=== PATIENT | male | born 1970 | race Caucasian/White ===

== ENCOUNTER 2017-02-04 18:51 | Emergency (ER) | payer SELFPAY ==
[2017-02-04 19:40] LABS: BASOPHIL# 0.2 X 10^3uL (0.0-0.1); BASOPHILS 2.2 % (0.0-2.0); EOSINOPHILS 2.7 % (0.0-6.0); EOSINOPHILS# 0.2 X 10^3uL (0.0-0.4); HEMATOCRIT 46.9 % (42.0-54.0); HEMOGLOBIN 15.7 g/dL (14.0-18.0); LYMPHOCYTES 25.1 % (20.0-40.0); MEAN CELL VOLUME 87.3 fL (80.0-100.0); MEAN CORPUS. HGB CONCENTRATION 33.5 g/dL (32.0-36.0); MEAN CORPUSCULAR HEMOGLOBIN 29.2 pg (29.0-35.0); MEAN PLATELET VOLUME 8.5 fL (7.4-10.4); MONOCYTES 6.2 % (2.0-10.0); MONOCYTES# 0.5 X 10^3uL (0.2-1.0); NEUTROPHILS 63.8 % (54.0-75.0); NEUTROPHILS# 5.1 X 10^3uL (2.6-6.7); RED BLOOD COUNT 5.37 X 10^6uL (4.20-6.10); RED CELL DISTRIBUTION WIDTH 14.1 % (11.5-14.5)
[2017-02-04] MEDS ORDERED: CLINDAMYCIN/D5W 600 MG/50 ML 600 MG IV ONE (19:41)
--- NOTE | 2017-02-04 20:34 | ER NURSING DOCUMENTATION ---
Nurse's Notes [facility] Name:Nick Buchanan Age:46 yrs Sex:Male :1970 Arrival Date:02/04/2017 Time:18:51 Bed5 Private MD: Diagnosis:Cellulitis of Upper Limb Presentation: 02/04 18:55 Acuity: EDUARDO 3 bw2 18:59 Presenting complaint: Patient states: pt received a laceration Sunday, now has reddness bw2 and streaking. denies fevers at home. Transition of care: patient was not received from another setting of care. 18:59 Method Of Arrival: Walk In bw2 Triage Assessment: 19:01 General: Appears in no apparent distress, Behavior is appropriate for age. Pain: Denies bw2 pain. Respiratory: No deficits noted. Breath sounds are clear bilaterally. Historical: - Allergies: SULFA (SULFONAMIDES); - Home Meds: 1. None - Tetanus: unknown. - Ebola Screening: : Patient negative for fever greater than or equal to 101.5 degrees Fahrenheit, and additional compatible Ebola Virus Disease symptoms. Patient denies exposure to infectious person. Patient denies travel to an Ebola-affected area in the 21 days before illness onset. No symptoms or risks identified at this time. . - Immunization history: Flu Vaccine None. - Social history: Smoking status: Patient uses tobacco products, current every day smoker. Screenin:04 Infectious Disease Risk None. Abuse screen: Denies threats or abuse. Denies injuries bw2 from another. Nutritional screening: No deficits noted. Assessment: 19:02 See Triage Assessment done by same RN. bw2 19:02 Derm: Skin laceration to left forearm. pt has reddness and streaking going up arm. bw2 19:04 Derm: pt states that this was not a laceration that was done purposely. bw2 Vital Signs: 18:58 BP 136 / 96; Pulse 79; Resp 20; Temp 99.3(O); Pulse Ox 95% on R/A; Weight 99.79 kg (R); arc Height 5 ft. 11 in. (180.34 cm) (R); Pain 0/10; 20:31 BP 133 / 90; Pulse 79; Resp 19; Temp 97.8(O); Pain 0/10; bw2 18:58 Body Mass Index 30.68 (99.79 kg, 180.34 cm) [facility] ED Course: 18:52 Patient arrived in ED. jo annt 18:55 Pamela Duarte is Primary Nurse. bw2 18:56 Triage completed. bw2 18:58 Edgar Rowe MD is Attending Physician. ri 19:04 Valuables Remains with patient. bw2 19:16 Inserted peripheral IV: 22 gauge in right hand. [facility] 19:36 Inserted peripheral IV: 20 gauge in right hand and blood collected. bw2 Administered Medications: 19:33 Drug: Clindamycin 600 mg; Route: IVPB; Site: right hand; bw2 20:30 Follow up: IV Status: Completed infusion bw2 Outcome: 19:27 Discharge ordered by MD. ri 20:31 Discharged to home ambulatory. bw2 20:31 Condition: good 20:31 Discharge Assessment: Patient awake, alert and oriented x 3. No cognitive and/or functional deficits noted. Patient verbalized understanding of disposition instructions. 20:31 Discharge instructions given to patient, Instructed on follow up and referral plans. medication usage, the need to come back for infusion of antibiotics. red line marked. pt instructed on keeping IV clean. pt instructed on keeping the IV wrapped and secured Demonstrated understanding of instructions, Prescriptions given X 1. 20:33 Patient left the ED. bw2 06 09:02 Instructed on INFECTION MUCH IMPROVED AFTER 2ND DOSE OF OP IV ABX, ONLY RED AROUND lc WOUND NOW ABOUT 1CM. DR ROWE NOTIFIED, WANTS PT TO START PO ABX AND NOT DO 3RD DOSE OF IV ABX. MESSAGE LEFT FOR PATIENT. 09:20 Discharge F/U Call: Unable to reach: left voicemail: Overall Care on a scale of 1-10 lc with 10 being the best care, you rate our care as: Other comments: TOLD TO STOP LAST IV ABX DOSE AND START PO ABX Signatures: Corry Merritt, Edgar Costello RN, MD MD ri Karen Rowe, Cristal Sparrow Beth bw2
--- NOTE | 2017-02-04 20:34 | ER PHYSICIAN DOCUMENTATION ---
Physician Documentation [facility] Name:Nick Buchanan Age:46 yrs Sex:Male :1970 Arrival Date:02/04/2017 Time:18:51 Bed5 Private MD: Edgar Alcantar Disposition: 02/04/17 19:27 Discharged to Home/Self Care. Impression: Cellulitis of Upper Limb. - Condition is Good. - Discharge Instructions: CELLULITIS. - Prescriptions for Clindamycin HCl 300 mg Oral Capsule - take 1 capsule by ORAL route every 6 hours for 10 days; 40 capsule. - Medical Reconciliation form form. - Follow up: Emergency Department; When: Tomorrow; Reason: Continuance of care, repeat antibiotics. - Problem is new. - Symptoms are unchanged. HPI: 02/04 19:22 This 46 yrs old Male presents to ER via Walk In with complaints of INFECTION. sc 19:22 The patient or guardian complains of an abrasion, a rash, erythematous. The complaints sc affect the left wrist. Context: The problem was sustained at home, resulted from wire brush on hull grinder. Onset: The symptom(s)/episode began/occurred 2 day(s) ago. Treatment prior to arrival includes: no previous treatment. Associated signs and symptoms: Pertinent positives: erythema, Pertinent negatives: numbness, pain, weakness. Historical: - Allergies: SULFA (SULFONAMIDES); - Home Meds: 1. None - Tetanus: unknown. - Ebola Screening: : Patient negative for fever greater than or equal to 101.5 degrees Fahrenheit, and additional compatible Ebola Virus Disease symptoms. Patient denies exposure to infectious person. Patient denies travel to an Ebola-affected area in the 21 days before illness onset. No symptoms or risks identified at this time. . - Immunization history: Flu Vaccine None. - Social history: Smoking status: Patient uses tobacco products, current every day smoker. ROS: 19:23 Constitutional: Negative for fever, chills, and weight loss. sc Eyes: Negative for injury, pain, redness, and discharge. ENT: Negative for injury, pain, and discharge. Neck: Negative for injury, pain, and swelling. Cardiovascular: Negative for chest pain, palpitations, and edema. Respiratory: Negative for shortness of breath, cough, wheezing, and pleuritic chest pain. Abdomen/GI: Negative for abdominal pain, nausea, vomiting, diarrhea, and constipation. Back: Negative for injury and pain. Skin: Negative for injury, rash, and discoloration. 19:23 Neuro: Negative for headache, weakness, numbness, tingling, and seizure. sc 19:23 MS/extremity: Positive for injury or acute deformity, erythema. Exam: Constitutional: This is a well developed, well nourished patient who is awake, alert, and in no acute distress. Head/Face: Normocephalic, atraumatic. Eyes: Pupils equal round and reactive to light, extra-ocular motions intact. Lids and lashes normal. Conjunctiva and sclera are non-icteric and not injected. Cornea within normal limits. Periorbital areas with no swelling, redness, or edema. Neck: Trachea midline, no thyromegaly or masses palpated, and no cervical lymphadenopathy. Supple, full range of motion without nuchal rigidity, or vertebral point tenderness. No meningismus. Chest/axilla: Normal chest wall appearance and motion. Nontender with no deformity. No lesions are appreciated. Respiratory: Lungs have equal breath sounds bilaterally, clear to auscultation and percussion. No rales, rhonchi or wheezes noted. No increased work of breathing, no retractions or nasal flaring. Skin: Warm, dry with normal turgor. Normal color with no rashes, no lesions, and no evidence of cellulitis. 19:24 Neuro: Awake and alert, GCS 15, oriented to person, place, time, and situation. nd Cranial nerves II-XII grossly intact. Motor strength 5/5 in all extremities. Sensory grossly intact. Cerebellar exam normal. Normal gait. 19:24 Musculoskeletal/extremity: Extremities: grossly normal except: abrasion, erythema, spreading from wrist to AC, ROM: intact in all extremities, Circulation is intact in all extremities. Sensation intact. Vital Signs: 18:58 BP 136 / 96; Pulse 79; Resp 20; Temp 99.3(O); Pulse Ox 95% on R/A; Weight 99.79 kg (R); arc Height 5 ft. 11 in. (180.34 cm) (R); Pain 0/10; 20:31 BP 133 / 90; Pulse 79; Resp 19; Temp 97.8(O); Pain 0/10; bw2 18:58 Body Mass Index 30.68 (99.79 kg, 180.34 cm) arc MDM: 18:58 Patient medically screened. nd 19:25 Differential diagnosis: cellulitis/lymphangiitis. Data reviewed: vital signs, nurses sc notes, lab test result(s), and as a result, I will discharge patient, administer antibiotics. Counseling: I had a detailed discussion with the patient and/or guardian regarding: the historical points, exam findings, and any diagnostic results supporting the discharge/admit diagnosis, lab results, the need for outpatient follow up, to return to the emergency department if symptoms worsen or persist or if there are any questions or concerns that arise at home. 02/04 19:41 Order name: CBC AUTO DIF, MDIF/RMOR IF IND; Complete Time: 19:56 EDND 02/05 19:38 Order name: BLOOD CULTURE EDND 02/05 19:38 Order name: BLOOD CULTURE EDMS Dispensed Medications: 19:33 Drug: Clindamycin 600 mg; Route: IVPB; Site: right hand; 2 20:30 Follow up: IV Status: Completed infusion bw2 Signatures: Edgar Rowe MD MD [facility] Center[facility]rianna larsenh bw2
== END 2017-02-04 20:34 | disposition home or self-care (01) ==
LOC: ER 18:51
DX: L03.114 Cellulitis of left upper limb (principal); S60.8 Other superficial injuries of wrist
CPT/HCPCS: 85025; 87040; 96365; 99284

== ENCOUNTER 2017-02-06 22:13 | Emergency (ER) | payer SELFPAY ==
--- NOTE | 2017-02-06 23:39 | ER NURSING DOCUMENTATION ---
Nurse's Notes [facility] Name:Nick Buchanan Age:46 yrs Sex:Male :1970 Arrival Date:02/06/2017 Time:22:13 Bed1 Private MD: Diagnosis:Cellulitis of Upper Limb Presentation: 02/06 22:16 Acuity: EDUARDO 4 rh 22:23 Presenting complaint: Patient states: receiving IV antibx for infected laceration to lpr left wrist. Developed a red line extending up left arm. Would like to have it checked. 22:55 Transition of care: patient was not received from another setting of care. 2 22:55 Method Of Arrival: [facility] 22:55 Acuity: EDUARDO 3 bw2 Triage Assessment: 22:55 General: Appears in no apparent distress, Behavior is appropriate for age. Pain: bw2 Complains of pain in left lower FA. Respiratory: No deficits noted. GI: No deficits noted. Historical: - Allergies: SULFA (SULFONAMIDES); - Home Meds: 1. None - Tetanus: < 10 years. - Ebola Screening: : Patient negative for fever greater than or equal to 101.5 degrees Fahrenheit, and additional compatible Ebola Virus Disease symptoms. Patient denies exposure to infectious person. Patient denies travel to an Ebola-affected area in the 21 days before illness onset. No symptoms or risks identified at this time. . - Immunization history: Flu Vaccine < 1 year. - Social history: Smoking status: Patient uses tobacco products, current every day smoker. Screenin:58 Infectious Disease Risk None. Abuse screen: Denies threats or abuse. Denies injuries bw2 from another. Nutritional screening: No deficits noted. Assessment: 22:58 See Triage Assessment done by same RN. bw2 Vital Signs: 22:56 BP 134 / 99; Pulse 92; Resp 18; Temp 99(O); Pulse Ox 94% on R/A; Weight 90.72 kg; bw2 Height 5 ft. 10 in. (177.80 cm); Pain 2/10; 22:56 Body Mass Index 28.70 (90.72 kg, 177.80 cm) bw2 ED Course: 22:15 Patient arrived in ED. ma1 22:16 Triage completed. rh 22:55 Pamela Duarte is Primary Nurse. bw2 22:58 Valuables Remains with patient Side rails up X2. bw2 23:18 Adarsh Nicolas MD is Attending Physician. tl1 Administered Medications: No medications were administered Outcome: 23:35 Discharge ordered by . tl1 23:38 Discharged to home ambulatory. 23:38 Condition: improved 23:38 Discharge Assessment: Patient awake, alert and oriented x 3. No cognitive and/or functional deficits noted. Patient verbalized understanding of disposition instructions. 23:38 Discharge instructions given to patient, Instructed on discharge instructions, follow up and referral plans. Demonstrated understanding of instructions. 23:38 Patient left the ED. Signatures: Kareen Simpson RN RN lpr Adarsh Nicolas MD MD tl1 Desiree Calles Brianna Duartegolisano [facility]2 Lucy Lilly [facility]
--- NOTE | 2017-02-06 23:39 | ER PHYSICIAN DOCUMENTATION ---
Physician Documentation [facility] Name:Nick Buchanan Age:46 yrs Sex:Male :1970 Arrival Date:02/06/2017 Time:22:13 Bed1 Private MD: Adarsh Servin Disposition: 02/06 23:50 Chart complete. tl1 Disposition: 02/06/17 23:35 Discharged to Home/Self Care. Impression: Cellulitis of Upper Limb. - Condition is Good. - Discharge Instructions: CELLULITIS. - Medical Reconciliation form form. - Follow up: Private Physician; When: 2 - 3 days; Reason: Recheck today's complaints. - Problem is an ongoing problem. - Symptoms have improved. - Notes: THIS SEEMS TO BE IMPROVING. CONTINUE WITH THE CLINDAMYCIN. RETURN FOR ANY WORSENING. HPI: 22:30 This 46 yrs old Male presents to ER via Walk In with complaints of Arm Pain. tl1 02/08 14:12 He is currently on day 3 of clindamycin for his left arm cellulitis. He feels like it tl1 has been steadily improving but over the last several hours, it seemed like the redness on his distal forearm was worsening, so he came here for evaluation. By the time I saw him he said that the redness had subsided and almost completely disappeared and said he was feeling sheepish for coming in.. Historical: - Allergies: SULFA (SULFONAMIDES); - Home Meds: 1. None - Tetanus: < 10 years. - Ebola Screening: : Patient negative for fever greater than or equal to 101.5 degrees Fahrenheit, and additional compatible Ebola Virus Disease symptoms. Patient denies exposure to infectious person. Patient denies travel to an Ebola-affected area in the 21 days before illness onset. No symptoms or risks identified at this time. . - Immunization history: Flu Vaccine < 1 year. - Social history: Smoking status: Patient uses tobacco products, current every day smoker. ROS: 02/06 23:00 MS/extremity: Positive for laceration, pain, Negative for decreased range of motion, tl1 tingling, warmth. Exam: 23:00 Constitutional: This is a well developed, well nourished patient who is awake, alert, tl1 and in no acute distress. 23:00 Head/Face: Normocephalic, atraumatic. tl1 23:00 Cardiovascular: Rate: normal, Rhythm: regular. 23:00 Respiratory: Respirations: normal. 23:00 Musculoskeletal/extremity: Extremities: grossly normal except: noted in the left wrist and palmar aspect of left forearm: Very slight pink area extending proximally in a distally based narrow triangle extending about 12 cm up the volar forearm. Vital Signs: 22:56 BP 134 / 99; Pulse 92; Resp 18; Temp 99(O); Pulse Ox 94% on R/A; Weight 90.72 kg; bw2 Height 5 ft. 10 in. (177.80 cm); Pain 2/10; 22:56 Body Mass Index 28.70 (90.72 kg, 177.80 cm) bw2 MDM: 23:18 Patient medically screened. tl1 23:50 Data reviewed: vital signs, nurses notes, old medical records, and as a result, I will tl1 discharge patient. Counseling: I had a detailed discussion with the patient and/or guardian regarding: the historical points, exam findings, and any diagnostic results supporting the discharge/admit diagnosis, the need for outpatient follow up, to return to the emergency department if symptoms worsen or persist or if there are any questions or concerns that arise at home. Special discussion: He is almost certainly improving. He will continue his antibiotics and return for any worsening.. Dispensed Medications: No medications were administered Signatures: Adarsh Nicolas MD MD tl1 Desiree Calles Beth bw2
== END 2017-02-06 23:39 | disposition home or self-care (01) ==
LOC: ER 22:13
DX: L03.114 Cellulitis of left upper limb (principal); S60.8 Other superficial injuries of wrist
CPT/HCPCS: 99281